=== PATIENT | female | born 1975 | race Caucasian/White ===

== ENCOUNTER → 2017-10-02 | Outpatient (CLI) | payer BC | END | disposition home or self-care (01) | LOC: MRI 10:19 | DX: M25.551 Pain in right hip (principal) | CPT/HCPCS: 73721 ==

== ENCOUNTER → 2017-12-11 | Outpatient (CLI) | payer BC ==
[2017-12-11] MEDS: LIDOCAINE 1% Multi-Dose 20 ML VIAL. ID (11:25)
[2017-12-11] MEDS: BUPIVACAINE MPF 0.5% 10 ML VIAL for KCIC. IJ (11:25)
[2017-12-11] MEDS: IOHEXOL 300 MG/ML 50 ML VIAL. INT ART (11:26)
[2017-12-11] MEDS: methylPREDNISolone ACETATE 40 MG/ML VIAL. INT ART (11:26)
== END | disposition home or self-care (01) ==
LOC: KCIC 10:11
DX: M25.551 Pain in right hip (principal); Z91.013 Allergy to seafood; Z91.041 Radiographic dye allergy status
CPT/HCPCS: 20610; 77002; J1030; Q9967